=== PATIENT | male | born 1975 | race Two or more races ===

== ENCOUNTER 2019-09-13 15:09 | Inpatient (IN) | payer OTHER ==
[~2019-09-13] VITALS: Ht 195.6 cm; Wt 80.9 kg
[2019-09-13] MEDS ORDERED: ZINC SULFATE 220mg CAP or TAB PO ONE (15:30)
[2019-09-13] MEDS ORDERED: methylPREDNISolone SOD SUCC 125 MG/2 ML VL IV ONE (15:30)
[2019-09-13] MEDS ORDERED: ASCORBIC ACID 500 MG TAB PO ONE (15:30)
[2019-09-13] MEDS ORDERED: hydrOXYchloroQUINE SULFATE 200 MG TAB PO ONE (15:30)
[2019-09-13] MEDS ORDERED: PANTOPRAZOLE 40 MG/10 ML VIAL INJ IV ONE (15:30)
[2019-09-13] MEDS ORDERED: AZITHROMYCIN 500MG/ 250ML 250 ML IV ONE (15:30)
[2019-09-13] MEDS ORDERED: ENOXAPARIN SOD 100 MG/1 ML SYRINGE SC ONE (15:45)
[2019-09-13 16:28] LABS: Basophils # (auto) 0 10 ^3/uL (0-0.2); Basophils % (auto) 0.1 % (0.0-2.0); Eosinophils # (auto) 0 10 ^3/uL (0-0.8); Hematocrit 46.4 % (41.0-53.0); Lymphocytes % (auto) 16.1 % (10.0-50.0); Mean Corpuscular Hemoglobin 29.8 pg (28.0-32.0); Mean Corpuscular Hgb Conc. 34.6 g/dL (32.0-36.0); Mean Corpuscular Volume 86.3 fL (80.0-100.0); Monocytes # (auto) 0.4 10 ^3/uL (0-1.3); Monocytes % (auto) 6.1 % (0.0-12.0); Neutrophils # (auto) 4.9 10 ^3/uL (1.6-8.6); Neutrophils % (auto) 77.7 % (37.0-80.0); Nucleated Red Blood Cells % 0.1 %; Platelet Count (auto) 174 10^3/uL (140-450); Red Blood Cells 5.37 10^6/uL (4.5-5.90); Red Cell Distribution Width 12.7 % (11.8-14.3); White Blood Cell 6.3 10^3/uL (4.4-10.8)
[2019-09-13 16:45] LABS: Albumin 3.6 g/dL (3.4-5.0); Anion Gap 9 (5-15); Blood Urea Nitrogen 8 mg/dL (7-18); Calcium 8.7 mg/dL (8.5-10.1); Carbon Dioxide 25 mmol/L (21-32); Chloride 102 mmol/L (98-107); Glucose 100 mg/dL (74-106); Sodium 136 mmol/L (136-145)
[2019-09-13 16:54] LABS: Alanine Aminotransferase 27 U/L (16-61); Alkaline Phosphatase 74 U/L (45-117); Aspartate Aminotransferase 37 U/L (15-37); BUN/Creatinine Ratio 8.5; Bilirubin, Total 0.4 mg/dL (0.2-1.0); CRP High Sensitivity 8.78 mg/dL (< 0.3); GFR African American 112 mL/min; GFR Non-African American 93 mL/min; Lactate Dehydrogenase 336 U/L (87-241); Total Protein 7.8 g/dL (6.4-8.2)
[2019-09-13] MEDS ORDERED: MORPHINE SULF INJ 2 MG/ML SYRINGE 1ML IV PRN ×2 (19:45)
[2019-09-13] MEDS ORDERED: ACETAMINOPHEN 325 MG TAB PO PRN (19:45)
[2019-09-13] MEDS ORDERED: HYDROmorphone HCL 2 MG/ML VL IV PRN (19:45)
[2019-09-13] MEDS ORDERED: DOCUSATE SOD 100 MG CAP PO PRN (19:45)
[2019-09-13] MEDS ORDERED: NITROGLYCERIN 0.4 MG SL TAB SL PRN (19:45)
[2019-09-13] MEDS ORDERED: TEMAZEPAM 15 MG CAP PO PRN (19:45)
[2019-09-13] MEDS ORDERED: ACETAMINOPHEN 500 MG TAB PO PRN (19:45)
[2019-09-13] MEDS ORDERED: ALUM & MAG HYDROX-SIMETH LIQ(MAALOX) 30 ML PO PRN (19:45)
[2019-09-13] MEDS ORDERED: HYDROcodone-ACET 5/325MG TAB PO PRN (19:45)
[2019-09-13] MEDS ORDERED: METOCLOPRAMIDE HCL 5MG/ml INJ 2ml VIAL IV PRN (19:45)
[2019-09-13] MEDS: BUDESONIDE (INHALATION) 180 MCG IH IN SCH (22:00)
[2019-09-13] MEDS: ALBUTEROL SULF HFA 90MCG INH 200DOSE IN SCH (22:00)
[2019-09-13] MEDS: SODIUM CHLOR 0.9% PF (SALINE LOCK) 10ML VIAL/SYR IV SCH (22:06)
[2019-09-13] MEDS: DOXYCYCLINE 100 MG TAB/CAP PO SCH (22:07)
[2019-09-14] VITALS (7 sets, daily range): BP systolic 97–120; BP diastolic 61–81
[2019-09-14 02:16] LABS: Urine Bacteria FEW /hpf (None Seen); Urine Blood Negative /uL (Negative); Urine Hyaline Cast FEW /lpf (0 - 2); Urine Mucus FEW (None Seen); Urine Specific Gravity 1.023 (1.001-1.035); Urine WBC 1 /hpf (0 - 3)
--- NOTE | 2019-09-14 03:10 | NUR ---
Telemetry admit from ER [place] SMALL admitted to Telemetry unit after SBAR received. Patient oriented to Porter Stacy, primary RN, unit, room, bed, and unit policies regarding patient care and visiting hours. Patient now on continuous telemetry monitoring, tele box # 16 and telemetry reading on arrival to unit is SR 80. Patient placed on bedside 3.0 L oxygen, weighed by bedscale and encouraged to call if they need something. Denies any pain. Bed is locked in lowest position with call light within reach. All questions and concerns addressed, patient verbalized understanding.
[2019-09-14] MEDS: SODIUM CHLOR 0.9% PF (SALINE LOCK) 10ML VIAL/SYR IV SCH (06:00)
[2019-09-14] MEDS: ALBUTEROL SULF HFA 90MCG INH 200DOSE IN SCH ×2 (06:00→15:02)
[2019-09-14] MEDS: DOXYCYCLINE 100 MG TAB/CAP PO SCH (08:49)
[2019-09-14] MEDS: BUDESONIDE (INHALATION) 180 MCG IH IN SCH (08:56)
[2019-09-14] MEDS ORDERED: CHOLECALCIFEROL (VITD3) 2,000 UNIT CAP PO SCH (10:00)
[2019-09-14] MEDS ORDERED: ASCORBIC ACID 1,000 MG TAB PO SCH (10:00)
[2019-09-14] MEDS ORDERED: ZINC SULFATE 220mg CAP or TAB PO SCH (10:00)
[2019-09-14 10:37] LABS: Albumin 3.3 g/dL (3.4-5.0); Calcium 9.1 mg/dL (8.5-10.1); Potassium 4.8 mmol/L (3.5-5.1)
[2019-09-14 10:40] LABS: BUN/Creatinine Ratio 15.4; Bilirubin, Total 0.4 mg/dL (0.2-1.0); Total Protein 7.6 g/dL (6.4-8.2)
[2019-09-14 10:45] LABS: Basophils # (auto) 0 10 ^3/uL (0-0.2); Basophils % (auto) 0.1 % (0.0-2.0); Eosinophils # (auto) 0 10 ^3/uL (0-0.8); Hematocrit 45.5 % (41.0-53.0); Hemoglobin 15.7 g/dL (13.5-17.5); Lymphocytes % (auto) 15.9 % (10.0-50.0); Mean Corpuscular Hemoglobin 29.8 pg (28.0-32.0); Mean Corpuscular Hgb Conc. 34.4 g/dL (32.0-36.0); Mean Corpuscular Volume 86.8 fL (80.0-100.0); Monocytes # (auto) 0.2 10 ^3/uL (0-1.3); Nucleated Red Blood Cells % 0.1 %; Platelet Count (auto) 204 10^3/uL (140-450); Red Blood Cells 5.25 10^6/uL (4.5-5.90); Red Cell Distribution Width 12.6 % (11.8-14.3); White Blood Cell 6.1 10^3/uL (4.4-10.8)
[2019-09-14] MEDS ORDERED: hydrOXYchloroQUINE SULFATE 200 MG TAB PO ONE (10:45)
--- NOTE | 2019-09-14 10:48 | NUR ---
Dr. Cookie Lozano at [facility], received order to give plaquenil 400mg po 1 more dose and start 200mg BID tomorrow. Orders readback and verified.
--- NOTE | 2019-09-14 10:51 | NUR ---
pt seen by Dr. Rodriguez Per Dr. Rodriguez he will arrange oxygen with [facility] to be delivered today, to observe pt until 3pm and update Dr. Rodriguez if pt is okay to discharge. Received order for ABG on 3L oxygen.
[2019-09-14] MEDS ORDERED: DexAMETHasone SOD PHOS 10MG/1ML VIAL INJ IV SCH (10:56)
--- NOTE | 2019-09-14 11:00 | NUR ---
pt informed that plaquenil is not FDA approved for COVID, pt agree to take the medication as prescribed.
--- NOTE | 2019-09-14 11:05 | NUR ---
G OBTAINED ON [facility]. RESULTS IN [facility].
--- NOTE | 2019-09-14 16:05 | NUR ---
PORTABLE OXYGEN DELIVERED AT BEDSIDE.
--- NOTE | 2019-09-14 16:20 | NUR ---
DR. MARTIN MADE AWARE PT'S O2 SAT IS BETWEEN 88-92 ON [address] OXYGEN, DR. MARTIN SAID TO KEEP THE PT OVERNIGHT AND HE WILL EVALUATE THE PT TOMORROW. PT INFORMED BUT PT IS REQUESTING TO GO HOME BECAUSE HE IS WORRIED FOR HIS WHO HAS COVID SYMPTOMS THAT NEEDED TO BE ADMITTED. DR. MARTIN INFORMED. PER DR. MARTIN PT CAN GO HOME AND NEEDS TO STAY ON OXYGEN, COVID HOME HEALTH NURSE FROM [facility] WILL FOLLOW UP THE PT.
--- NOTE | 2019-09-14 18:10 | NUR ---
Discharge instructions given as ordered. Encourage to follow up with DR. SKINNER as instructed. All questions and concerns addressed. Patient verbalized understanding. Medication reconciliation form completed and copy given to patient. IV removed with catheter intact, pressure dressing applied. Telemetry unit returned to ICU. Patient taken to vehicle via wheelchair with all personal belongings, accompanied by staff. No distress noted at time of departure.
[2019-09-14] MEDS ORDERED: hydrOXYchloroQUINE SULFATE 200 MG TAB PO SCH ×2 (22:00)
== END 2019-09-14 18:10 | disposition home health service (06) | DRG 177 ==
LOC: ER 15:09 → TELE 15:10 → TELE-EAST 09-14 03:09
PROVIDERS: ADMIT Internal Medicine; ATTEND Hospitalist
DX: U07.1 COVID-19 (principal); J12.89 Other viral pneumonia; J96.01 Acute respiratory failure with hypoxia; Z78.9 Other specified health status
CPT/HCPCS: 36415; 36600; 71045; 80053; 81001; 82728; 82805; 83605; 83615; 83735; 84484; 85025; 85379; 86141; 87040; 93005; 94640; 96365; 96375; 99291; C9113; G0378; J1100